=== PATIENT | female | born 1940 | race African-American/Black ===

== ENCOUNTER 2017-10-03 06:01 | Inpatient (IN) | payer OTHER ==
[~2017-10-03] VITALS: Ht 175.3 cm; Wt 114.8 kg
[2017-10-03 07:28] LABS: BASOPHILS % 0.4 % (0.0-2.0); HEMATOCRIT. 37.2 % (36.0-48.0); HEMOGLOBIN. 12.2 g/dL (12.0-16.0); LYMPHOCYTES % 29.1 % (20.0-50.0); MEAN CORPUSCULAR HEMOGLOBIN 30.5 pg (28.0-32.0); MEAN CORPUSCULAR VOLUME 92.8 fL (81.0-99.0); MEAN PLATELET VOLUME 10.1 fl (7.4-10.4); MONOCYTES % 5.7 % (2.0-8.0); NEUTROPHILS % 62.8 % (40.0-76.0); PLATELET 222 x1000/uL (130-400); RED CELL DISTRIBUTION WIDTH 15.3 % (11.6-14.6)
[2017-10-03 07:33] LABS: CHLORIDE 103 mEq/L (98-107)
[2017-10-03 07:34] LABS: PROTHROMBIN TIME 10.1 sec (9.4-11.6)
[2017-10-03 07:37] LABS: ETHANOL BLOOD < 10 mg/dL
[2017-10-03 08:25] LABS: CLARITY URINE CLEAR (CLEAR); COLOR URINE YELLOW (YELLOW); KETONES URINE NEGATIVE (NEGATIVE); LEUKOCYTE ESTERASE URINE 1+ (NEGATIVE); NITRITE URINE NEGATIVE (NEGATIVE); OCCULT BLOOD URINE NEGATIVE (NEGATIVE); PROTEIN URINE NEGATIVE (NEGATIVE); SPECIFIC GRAVITY URINE 1.032 (1.005-1.030); UROBILINOGEN URINE 0.2 E.U./dL (0.2-1.0)
[2017-10-03 08:42] LABS: *AMPHETAMINES SCREEN URINE NEGATIVE (NEGATIVE); *BARBITURATES SCREEN URINE NEGATIVE (NEGATIVE); *BENZODIAZEPINES SCREEN URINE NEGATIVE (NEGATIVE); *COCAINE SCREEN URINE NEGATIVE (NEGATIVE); CANNABINOID URINE SCREEN NEGATIVE (NEGATIVE); PHENCYCLIDINE URINE SCREEN NEGATIVE (NEGATIVE)
[2017-10-03 08:43] LABS: METHADONE URINE SCREEN NEGATIVE (NEGATIVE); OPIATES URINE SCREEN NEGATIVE (NEGATIVE)
[2017-10-03 09:15] LABS: BG BASE EXCESS 0.1 mmol/L (-2.0-2.0); BG CARBOXYHEMOGLOBIN 0.9 % (0.5-1.5); BG DEOXYHEMOGLOBIN 3.2 % (0.0-5.0); BG FRACTION INSPIRED OXYGEN 21; BG HCO3 ACT 24.6 mmol/L (22.0-26.0); BG METHEMOGLOBIN 0.2 % (0.0-1.5); BG OXYGEN SATURATION 96.8 % (92.0-98.5); BG OXYHEMOGLOBIN 95.7 % (94.0-97.0); BG PCO2 39.6 mmHg (35.0-45.0); BG PH 7.411 (7.350-7.450); BG PO2 87.7 mmHg (75.0-100.0); BG SAMPLE SITE RIGHT RADIAL; BG TOTAL HEMOGLOBIN 11.8 g/dL (12.0-18.0); BG VENT MODE ROOM AIR
[2017-10-03] MEDS ORDERED: CEFTRIAXONE SODIUM 1 G/VIAL IM ONE (10:45)
[2017-10-03] MEDS ORDERED: GUAIFENESIN 200MG/10ML SUGAR FREE UDC PO PRN (11:30)
[2017-10-03] MEDS ORDERED: CLONIDINE 0.1MG TABLET PO PRN (11:30)
[2017-10-03] MEDS ORDERED: MAGNESIUM/ALUMINUM HYDROXIDE/SIMETHICONE 30ML UDC PO PRN (11:30)
[2017-10-03] MEDS ORDERED: IPRATROPIUM/ALBUTEROL 0.5-3(2.5)MG/3ML NEB INH PRN (11:30)
[2017-10-03] MEDS ORDERED: NITROGLYCERIN 0.4MG TABLET SL SL PRN (11:30)
[2017-10-03] MEDS ORDERED: ONDANSETRON HCL 4MG/2ML VIAL IV PRN (11:30)
[2017-10-03] MEDS ORDERED: TRAMADOL 50MG TABLET PO PRN (11:30)
[2017-10-03] MEDS ORDERED: NA PHOS,M-B/NA PHOS,DI-BA ENEMA 118ML PR PRN (11:30)
[2017-10-03] MEDS ORDERED: ACETAMINOPHEN 325MG TABLET PO PRN (11:30)
[2017-10-03] MEDS ORDERED: DEXTROSE 50% WATER 50ML SYRINGE IV PRN (11:30)
[2017-10-03] MEDS ORDERED: CEFTRIAXONE 1 G PREMIX 50 ML IV ONE (12:00)
[2017-10-03] MEDS: BLOOD SUGAR DIAGNOSTIC STRIP TEST SCH ×3 (12:32→21:17)
[2017-10-03 12:43] LABS: T4 FREE 1.25 ng/dL (0.76-1.46)
[2017-10-03] MEDS ORDERED: ONDANSETRON 4MG ODT PO PRN (12:45)
[2017-10-03] MEDS: LEVOFLOXACIN 500MG PREMIX 100 ML IV SCH (14:00)
[2017-10-03] MEDS ORDERED: SODIUM CHLORIDE 0.9% 500 ML IV ONE (14:15)
[2017-10-03] MEDS ORDERED: POTA10TA2 PO (15:16)
[2017-10-03] MEDS ORDERED: LISI-186 PO (15:16)
[2017-10-03] MEDS ORDERED: CHOL200010 PO (15:16)
[2017-10-03] MEDS ORDERED: CALC1CAP22 PO (15:16)
[2017-10-03] MEDS ORDERED: ASPI-1159 PO (15:16)
[2017-10-03] MEDS ORDERED: METF10004 PO (15:16)
[2017-10-03] MEDS ORDERED: CLOP75TA33 PO (15:16)
[2017-10-03] MEDS ORDERED: ROPI0.252 PO (15:16)
[2017-10-03] MEDS ORDERED: CARV3.1242 PO (15:16)
[2017-10-03] MEDS ORDERED: FURO40TA5 PO (15:16)
[2017-10-03] MEDS ORDERED: ATOR40TA70 PO (15:16)
[2017-10-03 17:10] VITALS: BP 149/84
[2017-10-03] MEDS: INSULIN LISPRO 100 UNITS/ML SUBCUT SCH ×3 (17:50→22:53)
[2017-10-03] MEDS: DOCUSATE SODIUM 100MG CAPSULE PO PRN ×2 (18:53→18:54)
[2017-10-03] MEDS: ASPIRIN 325MG EC TABLET PO SCH (18:55)
[2017-10-03] MEDS: ENOXAPARIN 30MG/0.3ML SYR SUBCUT SCH ×2 (18:56→21:17)
[2017-10-03 20:00] VITALS: BP 140/72
[2017-10-03 20:15] LABS: CREATINE KINASE MB FRACTION 2.4 ng/mL (0.5-3.6)
[2017-10-03] MEDS ORDERED: ZOLPIDEM TARTRATE 5MG TABLET PO PRN (21:00)
[2017-10-03] MEDS: FAMOTIDINE 20MG TABLET PO SCH (21:16)
[2017-10-03] MEDS: LISINOPRIL 20MG TABLET PO SCH (21:16)
[2017-10-03] MEDS: ASCORBIC ACID 500 MG TABLET PO SCH (21:16)
[2017-10-04] VITALS: BP 139/63
[2017-10-04 00:12] LABS: CREATINE KINASE MB FRACTION 2.1 ng/mL (0.5-3.6)
[2017-10-04 04:00] VITALS: BP 137/92
[2017-10-04] MEDS: BLOOD SUGAR DIAGNOSTIC STRIP TEST SCH ×3 (07:33→16:49)
[2017-10-04] MEDS: INSULIN LISPRO 100 UNITS/ML SUBCUT SCH ×3 (07:33→17:23)
[2017-10-04 08:00] VITALS: BP 186/78
[2017-10-04] MEDS: ASCORBIC ACID 500 MG TABLET PO SCH (08:41)
[2017-10-04] MEDS: ASPIRIN 325MG EC TABLET PO SCH (08:41)
[2017-10-04] MEDS: FAMOTIDINE 20MG TABLET PO SCH (08:41)
[2017-10-04] MEDS: LISINOPRIL 20MG TABLET PO SCH (08:41)
[2017-10-04] MEDS: ENOXAPARIN 30MG/0.3ML SYR SUBCUT SCH (08:42)
[2017-10-04] MEDS ORDERED: ZINC SULFATE 220 MG ( 50 ) CAPSULE PO SCH (09:00)
[2017-10-04 12:00] VITALS: BP 161/89
[2017-10-04] MEDS ORDERED: CEFTRIAXONE 1 G PREMIX 50 ML IV SCH (12:00)
[2017-10-04] MEDS ORDERED: AMLODIPINE 10MG TABLET PO SCH (13:00)
[2017-10-04] MEDS: LEVOFLOXACIN 500MG PREMIX 100 ML IV SCH ×2 (14:00→14:55)
[2017-10-04 16:00] VITALS: BP 152/95
[2017-10-04 17:04] VITALS: BP 152/95
[2017-10-04] MEDS ORDERED: ATORVASTATIN CALCIUM 10MG TABLET PO SCH (21:00)
== END 2017-10-04 19:00 | disposition short-term general hospital (02) | DRG 193 ==
LOC: ER 06:01 → ENRESERV 09:20 → CANRESERV 09:20 → ENRESERV 09:23 → CANRESERV 09:23 → EDBEDREQSVC 10:56 → EDBEDREQ 10:56 → ENRESERV 11:06 → 6EST 11:54
PROVIDERS: ADMIT Internal Medicine; ATTEND Internal Medicine
DX: J18.9 Pneumonia, unspecified organism (principal); G92 Toxic encephalopathy; N39.0 Urinary tract infection, site not specified; F02.80 Dementia in other diseases classified elsewhere, unspecified severity, without behavioral disturbance, psychotic disturbance, mood disturbance, and anxiety; E11.65 Type 2 diabetes mellitus with hyperglycemia; G20 Parkinson's disease; G30.9 Alzheimer's disease, unspecified; I11.9 Hypertensive heart disease without heart failure; Z79.899 Other long term (current) drug therapy; Z91.14 Patient's other noncompliance with medication regimen; I25.2 Old myocardial infarction
CPT/HCPCS: 36415; 36600; 70450; 71045; 80053; 80061; 80305; 81003; 82375; 82550; 82553; 82805; 82962; 83036; 83605; 83690; 83880; 84439; 84443; 84484; 85025; 85610; 87040; 87077; 87086; 87186; 92610; 93005; 93970; 99285; G0482; J0696; J1650; J1815; J1956

== ENCOUNTER 2019-07-22 18:08 | Emergency (ER) | payer OTHER ==
[~2019-07-22] VITALS: Ht 167.6 cm; Wt 85.0 kg
[~2019-07-22 18:08] MED LIST: ASPI-1497 PO; ATOR40TA70 PO; CALC1CAP22 PO; CARV3.1242 PO; CHOL200010 PO; CLOP75TA33 PO; FURO40TA5 PO; LISI-186 PO; METF-416 PO; POTA10TA2 PO; ROPI0.257 PO
[2019-07-22 19:06] LABS: BASOPHILS % 0.6 % (0.0-2.0); HEMATOCRIT. 37.6 % (36.0-48.0); HEMOGLOBIN. 12.3 g/dL (12.0-16.0); LYMPHOCYTES % 27.5 % (20.0-50.0); MEAN CORPUSCULAR HEMOGLOBIN 30.1 pg (28.0-32.0); MEAN CORPUSCULAR VOLUME 91.8 fL (81.0-99.0); MEAN PLATELET VOLUME 10.6 fl (7.4-10.4); MONOCYTES % 5.6 % (2.0-8.0); NEUTROPHILS % 63.3 % (40.0-76.0); PLATELET 229 x1000/uL (130-400); RED CELL DISTRIBUTION WIDTH 14.8 % (11.6-14.6)
[2019-07-22 19:11] LABS: CHLORIDE 102 mEq/L (98-107)
[2019-07-22] MEDS ORDERED: ASPIRIN 300MG SUPP PR ONE (23:45)
[2019-07-23 01:28] VITALS: BP 154/97
== END 2019-07-23 01:46 | disposition short-term general hospital (02) ==
LOC: ER 18:08 → CANBEDREQ 07-23 06:41
DX: I63.9 Cerebral infarction, unspecified (principal); R47.1 Dysarthria and anarthria; I10 Essential (primary) hypertension; E11.9 Type 2 diabetes mellitus without complications; F03.90 Unspecified dementia, unspecified severity, without behavioral disturbance, psychotic disturbance, mood disturbance, and anxiety; I25.2 Old myocardial infarction; Z79.899 Other long term (current) drug therapy
CPT/HCPCS: 36415; 71045; 80053; 84484; 85025; 93005; 99291; U0003-CS

== ENCOUNTER 2020-02-01 14:16 | Emergency (ER) | payer OTHER ==
[~2020-02-01] VITALS: Ht 172.7 cm; Wt 75.0 kg
[2020-02-01 16:22] LABS: CLARITY URINE CLEAR (CLEAR); COLOR URINE YELLOW (YELLOW); KETONES URINE NEGATIVE (NEGATIVE); LEUKOCYTE ESTERASE URINE NEGATIVE (NEGATIVE); NITRITE URINE NEGATIVE (NEGATIVE); OCCULT BLOOD URINE NEGATIVE (NEGATIVE); PROTEIN URINE NEGATIVE (NEGATIVE); SPECIFIC GRAVITY URINE 1.015 (1.005-1.030); UROBILINOGEN URINE 0.2 E.U./dL (0.2-1.0)
[2020-02-01 16:59] LABS: BASOPHILS % 0.5 % (0.0-2.0); EOSINOPHILS % 0.2 % (0.0-5.0); HEMATOCRIT. 39.4 % (36.0-48.0); HEMOGLOBIN. 12.9 g/dL (12.0-16.0); LYMPHOCYTES % 15.3 % (20.0-50.0); MEAN CORPUSCULAR HEMOGLOBIN 30.2 pg (28.0-32.0); MEAN CORPUSCULAR VOLUME 92.4 fL (81.0-99.0); MEAN PLATELET VOLUME 10.5 fl (7.4-10.4); MONOCYTES % 6.1 % (2.0-8.0); NEUTROPHILS % 77.9 % (40.0-76.0); PLATELET 281 x1000/uL (130-400); RED BLOOD CELL COUNT 4.27 mill/uL (4.2-5.4); RED CELL DISTRIBUTION WIDTH 15.3 % (11.6-14.6)
[2020-02-01 17:04] LABS: CHLORIDE 107 mEq/L (98-107)
[2020-02-01] MEDS ORDERED: CEFTRIAXONE 1 G PREMIX 50 ML IV ONE (17:45)
[2020-02-01 23:06] VITALS: BP 132/82
== END 2020-02-01 23:15 | disposition home or self-care (01) ==
LOC: ER 14:16
DX: L03.90 Cellulitis, unspecified (principal); I25.2 Old myocardial infarction; I10 Essential (primary) hypertension; E11.9 Type 2 diabetes mellitus without complications; Z79.899 Other long term (current) drug therapy; Z98.890 Other specified postprocedural states; Z79.82 Long term (current) use of aspirin
CPT/HCPCS: 36415; 71045; 80053; 81003; 84484; 85025; 93005; 99285

== ENCOUNTER 2020-06-05 15:31 | Emergency (ER) | payer OTHER ==
[~2020-06-05] VITALS: Ht 167.6 cm; Wt 82.0 kg
[2020-06-05] MEDS ORDERED: SODIUM CHLORIDE 0.9% 1000ML BAG (SEPSIS BOLUS) IV ONE (16:00)
[2020-06-05] MEDS ORDERED: PIPERACILLIN/TAZ 3.375G PREMIX 50 ML IV ONE (16:00)
[2020-06-05] MEDS ORDERED: VANCOMYCIN 1 G PREMIX 200 ML IV ONE (16:00)
[2020-06-05 16:17] LABS: BASOPHILS % 0.6 % (0.0-2.0); EOSINOPHILS % 0.3 % (0.0-5.0); HEMATOCRIT. 38.5 % (36.0-48.0); HEMOGLOBIN. 12.3 g/dL (12.0-16.0); LYMPHOCYTES % 23.9 % (20.0-50.0); MEAN CORPUSCULAR HEMOGLOBIN 29.7 pg (28.0-32.0); MEAN CORPUSCULAR VOLUME 93.3 fL (81.0-99.0); MEAN PLATELET VOLUME 10.6 fl (7.4-10.4); MONOCYTES % 8.8 % (2.0-8.0); NEUTROPHILS % 66.4 % (40.0-76.0); PLATELET 286 x1000/uL (130-400); RED BLOOD CELL COUNT 4.13 mill/uL (4.2-5.4); RED CELL DISTRIBUTION WIDTH 14.7 % (11.6-14.6)
[2020-06-05 16:23] LABS: CHLORIDE 113 mEq/L (98-107)
[2020-06-05 16:45] LABS: INR 1.3
[2020-06-05] MEDS ORDERED: ACETAMINOPHEN 650MG SUPP PR ONE (16:45)
[2020-06-05 17:06] LABS: CLARITY URINE CLEAR (CLEAR); COLOR URINE YELLOW (YELLOW); KETONES URINE 1+ (NEGATIVE); LEUKOCYTE ESTERASE URINE NEGATIVE (NEGATIVE); NITRITE URINE NEGATIVE (NEGATIVE); OCCULT BLOOD URINE NEGATIVE (NEGATIVE); PROTEIN URINE NEGATIVE (NEGATIVE); SPECIFIC GRAVITY URINE 1.022 (1.005-1.030); UROBILINOGEN URINE 0.2 E.U./dL (0.2-1.0)
[2020-06-05 19:30] VITALS: BP 113/62
== END 2020-06-05 21:46 | disposition short-term general hospital (02) ==
LOC: ER 15:31
DX: A41.9 Sepsis, unspecified organism (principal); R65.20 Severe sepsis without septic shock; N17.9 Acute kidney failure, unspecified; J12.9 Viral pneumonia, unspecified; Z20.822 Contact with and (suspected) exposure to COVID-19; I10 Essential (primary) hypertension; E13.621 Other specified diabetes mellitus with foot ulcer; L97.419 Non-pressure chronic ulcer of right heel and midfoot with unspecified severity; Z79.84 Long term (current) use of oral hypoglycemic drugs; Z86.73 Personal history of transient ischemic attack (TIA), and cerebral infarction without residual deficits
CPT/HCPCS: 36415; 70450; 71045; 74176; 80053; 81003; 82962; 83605; 83880; 84145; 84484; 85025; 85610; 87040; 87077; 87086; 87186; 93005; 96374; 96375; 99291; C9803; J2543; J3370; J7030; U0003

== ENCOUNTER 2021-09-01 12:31 | Emergency (ER) | payer OTHER ==
[~2021-09-01] VITALS: Ht 165.1 cm; Wt 87.0 kg
[2021-09-01 14:45] LABS: BASOPHILS % 0.7 % (0.0-2.0); EOSINOPHILS % 1.7 % (0.0-5.0); HEMATOCRIT. 35.1 % (36.0-48.0); HEMOGLOBIN. 11.2 g/dL (12.0-16.0); LYMPHOCYTES % 17.3 % (20.0-50.0); MEAN CORPUSCULAR HEMOGLOBIN 28.4 pg (28.0-32.0); MEAN CORPUSCULAR VOLUME 88.7 fL (81.0-99.0); MEAN PLATELET VOLUME 10.1 fl (7.4-10.4); MONOCYTES % 10.3 % (2.0-8.0); PLATELET 232 x1000/uL (130-400); RED BLOOD CELL COUNT 3.96 mill/uL (4.2-5.4); RED CELL DISTRIBUTION WIDTH 16.5 % (11.6-14.6)
[2021-09-01 14:51] LABS: CLARITY URINE TURBID (CLEAR); COLOR URINE ORANGE (YELLOW); KETONES URINE NEGATIVE (NEGATIVE); LEUKOCYTE ESTERASE URINE 2+ (NEGATIVE); NITRITE URINE NEGATIVE (NEGATIVE); OCCULT BLOOD URINE 2+ (NEGATIVE); PH URINE >=9.0 (4.5-8.0); PROTEIN URINE 2+ (NEGATIVE); SPECIFIC GRAVITY URINE 1.018 (1.005-1.030); UROBILINOGEN URINE 0.2 E.U./dL (0.2-1.0)
[2021-09-01 14:54] LABS: CHLORIDE 102 mEq/L (98-107)
[2021-09-01] MEDS ORDERED: CEFTRIAXONE 1 G PREMIX 50 ML IV ONE (16:45)
[2021-09-01] MEDS ORDERED: SODIUM CHLORIDE 0.9% 1,000 ML IV ONE (17:45)
[2021-09-01 21:34] VITALS: BP 98/78
== END 2021-09-01 22:03 | disposition short-term general hospital (02) ==
LOC: ER 12:31
DX: G93.40 Encephalopathy, unspecified (principal); N30.00 Acute cystitis without hematuria; E86.0 Dehydration; E11.9 Type 2 diabetes mellitus without complications; I25.2 Old myocardial infarction; I10 Essential (primary) hypertension; Z20.822 Contact with and (suspected) exposure to COVID-19; Z79.82 Long term (current) use of aspirin; Z79.899 Other long term (current) drug therapy; Z86.73 Personal history of transient ischemic attack (TIA), and cerebral infarction without residual deficits; Z98.890 Other specified postprocedural states
CPT/HCPCS: 36415; 70450; 71045; 80053; 81003; 82962; 84484; 85025; 87077; 87086; 87186; 87426; 93005; 96365; 99285; C9803; J0696; J7030

== ENCOUNTER 2024-06-22 16:58 | Emergency (ER) | payer OTHER ==
[~2024-06-22] VITALS: Ht 177.8 cm; Wt 100.0 kg
[~2024-06-22 16:58] MED LIST changes: +POTA-216 PO; -POTA10TA2 PO; +ROPI0.2534 PO; -ROPI0.257 PO
[2024-06-22] MEDS ORDERED: APIX5TAB PO (17:08)
[2024-06-22] MEDS ORDERED: TIOT4MIS2 IH (17:09)
[2024-06-22] MEDS ORDERED: CARV3.1242 PO (17:09)
[2024-06-22] MEDS ORDERED: ATOR40TA70 PO (17:09)
[2024-06-22 17:10] VITALS: O2SAT 98
[2024-06-22 18:21] LABS: BASOPHILS % 0.3 % (0.0-2.0); HEMATOCRIT. 35.9 % (36.0-48.0); HEMOGLOBIN. 11.4 g/dL (12.0-16.0); MEAN CORPUSCULAR HEMOGLOBIN 30.2 pg (28.0-32.0); MEAN CORPUSCULAR HGB CONC 31.8 g/dL (31.0-37.0); MEAN CORPUSCULAR VOLUME 94.8 fL (81.0-99.0); MEAN PLATELET VOLUME 9.9 fl (7.4-10.4); MONOCYTES % 7.4 % (2.0-8.0); NEUTROPHILS % 62.3 % (40.0-76.0); PLATELET 140 x1000/uL (130-400); RED BLOOD CELL COUNT 3.79 mill/uL (4.2-5.4); RED CELL DISTRIBUTION WIDTH 14.7 % (11.6-14.6); WHITE BLOOD COUNT 7.3 x1000/uL (4.5-11.0)
[2024-06-22 18:30] LABS: CHLORIDE 106 mEq/L (98-107); POTASSIUM 4.3 mEq/L (3.5-5.1); SODIUM 139 mEq/L (136-145)
[2024-06-22 18:31] LABS: CALCIUM 9.1 mg/dL (8.7-10.4); CARBON DIOXIDE 29 mEq/L (21-32)
[2024-06-22 18:36] LABS: CREATININE 0.8 mg/dL (0.6-1.0); GLUCOSE 307 mg/dL (70-105); UREA NITROGEN BLOOD 19 mg/dL (9-23)
[2024-06-22 18:37] LABS: ETHANOL BLOOD < 10 mg/dL (<10)
[2024-06-22 18:38] LABS: PROTHROMBIN TIME 10.9 sec (9.6-11.0)
[2024-06-22 19:48] LABS: CLARITY URINE CLEAR (CLEAR); COLOR URINE YELLOW (YELLOW); GLUCOSE URINE 2+ (NEGATIVE); KETONES URINE NEGATIVE (NEGATIVE); LEUKOCYTE ESTERASE URINE 1+ (NEGATIVE); NITRITE URINE NEGATIVE (NEGATIVE); OCCULT BLOOD URINE NEGATIVE (NEGATIVE); PH URINE 7.5 (4.5-8.0); PROTEIN URINE NEGATIVE (NEGATIVE); SPECIFIC GRAVITY URINE 1.034 (1.005-1.030); UROBILINOGEN URINE 0.2 E.U./dL (0.2-1.0)
[2024-06-22] MEDS: LABETALOL 5MG/ML 4ML INJ IV ONE (20:06)
[2024-06-22 20:23] LABS: *AMPHETAMINES SCREEN URINE NEGATIVE (NEGATIVE); *BARBITURATES SCREEN URINE NEGATIVE (NEGATIVE); *BENZODIAZEPINES SCREEN URINE NEGATIVE (NEGATIVE); *COCAINE SCREEN URINE NEGATIVE (NEGATIVE); METHADONE URINE SCREEN NEGATIVE (NEGATIVE); OPIATES URINE SCREEN NEGATIVE (NEGATIVE); PHENCYCLIDINE URINE SCREEN NEGATIVE (NEGATIVE)
[2024-06-22 20:24] LABS: CANNABINOID URINE SCREEN NEGATIVE (NEGATIVE); ECSTASY MDMA SCREEN URINE NEGATIVE (NEGATIVE)
[2024-06-22 20:35] LABS: BACTERIA URINE NONE SEEN; RBC URINE NONE SEEN /hpf (0-2); SQUAMOUS EPITHELIAL CELL URINE NONE SEEN /lpf (RARE/1+); WBC URINE 0-2 /hpf (0-2)
[2024-06-22 21:30] VITALS: BP 150/59; PULSE 61; RESP 18; TEMP 37; O2SAT 97
[2024-06-22] MEDS: INSULIN REGULAR (HUMULIN R) 1000UNITS/10ML VIAL SUBCUT ONE (21:47)
[2024-06-23] MEDS ORDERED: IOHEXOL-350 100 ML BOTTLE ONE (00:09)
== END 2024-06-22 22:25 | disposition short-term general hospital (02) ==
LOC: ER 16:58
DX: I63.9 Cerebral infarction, unspecified (principal); I10 Essential (primary) hypertension; E11.9 Type 2 diabetes mellitus without complications; F03.90 Unspecified dementia, unspecified severity, without behavioral disturbance, psychotic disturbance, mood disturbance, and anxiety; I50.9 Heart failure, unspecified; Z20.822 Contact with and (suspected) exposure to COVID-19; Z98.890 Other specified postprocedural states; Z86.73 Personal history of transient ischemic attack (TIA), and cerebral infarction without residual deficits
CPT/HCPCS: 80305; 80048; 81003; 80320; 82962; 85025; 85610; 36415; 71045; 70496; 70498; 70450; 93005; 96374; 99291; 87426; Q9967; J1815; J3490; 96372; G0480